=== PATIENT | male | born 1960 | race African-American/Black ===

== ENCOUNTER 2021-02-18 16:23 | Emergency (ER) | payer MEDICAID, OTHER ==
[~2021-02-18] VITALS: Ht 180.3 cm; Wt 79.5 kg
[~2021-02-18 16:23] MED LIST: ALBU0.0912 IH; OXYC1TAB PO; OXYCODONE ACETAMINOPHEN; PROM25TA85 PO; [UNRECOGNIZED DRUG - CODE] PO; [UNRECOGNIZED DRUG - CODE] PO; [UNRECOGNIZED DRUG - OTHER]
[2021-02-18 16:28] VITALS: BP 177/93
[2021-02-18] MEDS ORDERED: PROMETHAZINE 25 MG/ML VIAL IM ONE (17:05)
[2021-02-18] MEDS ORDERED: fentaNYL citrate 0.05 MG/ML VIAL IM ONE (17:05)
[2021-02-18] MEDS ORDERED: PRED20TA5 PO ×2 (17:08→17:37)
[2021-02-18] MEDS ORDERED: CLON-865 PO ×2 (17:08→17:37)
[2021-02-18] MEDS ORDERED: ACET-5636 PO ×2 (17:08→17:37)
[2021-02-18] MEDS ORDERED: LISI40TA12 PO ×2 (17:08→17:37)
[2021-02-18] MEDS ORDERED: ONDA8TAB87 PO ×2 (17:21→17:37)
[2021-02-18 17:51] VITALS: BP 177/93
== END 2021-02-18 18:46 | disposition home or self-care (01) ==
LOC: MED 16:23
DX: K50.90 Crohn's disease, unspecified, without complications (principal); J45.909 Unspecified asthma, uncomplicated; K21.9 Gastro-esophageal reflux disease without esophagitis; F17.210 Nicotine dependence, cigarettes, uncomplicated; Z87.448 Personal history of other diseases of urinary system; Z98.890 Other specified postprocedural states; Z79.899 Other long term (current) drug therapy; Z79.51 Long term (current) use of inhaled steroids; Z88.8 Allergy status to other drugs, medicaments and biological substances; Z88.6 Allergy status to analgesic agent; Z88.2 Allergy status to sulfonamides; Z88.5 Allergy status to narcotic agent
CPT/HCPCS: 96372; 99284; J2550; J3010

== ENCOUNTER 2021-04-13 07:16 | Emergency (ER) | payer OTHER ==
[~2021-04-13] VITALS: Ht 180.3 cm; Wt 79.8 kg
[~2021-04-13 07:16] MED LIST changes: +ACET-5636 PO; +CLON-865 PO; +LISI40TA12 PO; +ONDA8TAB87 PO; +PRED20TA5 PO
[2021-04-13 07:34] VITALS: BP 179/92
[2021-04-13] MEDS ORDERED: fentaNYL citrate 0.05 MG/ML VIAL IM ONE (07:45)
[2021-04-13 09:05] LABS: BASOPHILS % (AUTO) 0.8 % (0.0-2.0); EOSINOPHILS % (AUTO) 0.7 % (0.0-4.0); HEMATOCRIT 41.6 % (36-52); HEMOGLOBIN 13.9 g/dL (12.0-18.0); LYMPHOCYTES # (AUTO) 1.5 K/uL (2.0-11.5); LYMPHOCYTES % (AUTO) 35.9 % (20.5-51.1); MEAN CORPUSCULAR HEMOGLOBIN 31 pg (27-31); MEAN CORPUSCULAR HGB CONC 34 g/dL (33-37); MEAN CORPUSCULAR VOLUME 92.5 fL (80-94); MONOCYTES # (AUTO) 0.5 K/uL (0.8-1.0); MONOCYTES % (AUTO) 10.9 % (1.7-9.3); NEUTROPHILS # (AUTO) 2.2 K/uL (1.8-7.7); NEUTROPHILS % (AUTO) 51.7 % (42.2-75.2); PLATELET COUNT (AUTO) 230 K/uL (140-450); RED CELL DISTRIBUTION WIDTH 14.1 % (11.6-13.7); WHITE BLOOD COUNT (AUTO) 4.3 K/uL (4.8-10.8)
[2021-04-13] MEDS ORDERED: ACET-5629 PO (09:14)
[2021-04-13 09:23] VITALS: BP 179/92
--- NOTE | 2021-04-13 09:23 | NUR ---
Patient discharged with v/s stable. Written and verbal after care instructions given and explained. Patient alert, oriented and verbalized understanding of instructions. Ambulatory with steady gait. All questions addressed prior to discharge. ID band removed. Patient advised to follow up with PMD. Rx of percocet given. Patient educated on indication of medication including possible reaction and side effects. Opportunity to ask questions provided and answered.
[2021-04-13 09:31] LABS: ALBUMIN 3.5 g/dL (3.4-5.0); ANION GAP 13.7 (8-16); CARBON DIOXIDE 25.9 mmol/L (21-32); CREATININE 0.9 mg/dL (0.6-1.3); POTASSIUM 3.6 mmol/L (3.5-5.1); TOTAL BILIRUBIN 0.3 mg/dL (0.0-1.0)
== END 2021-04-13 09:23 | disposition home or self-care (01) ==
LOC: MED 07:16
DX: K50.90 Crohn's disease, unspecified, without complications (principal); G89.29 Other chronic pain; J45.909 Unspecified asthma, uncomplicated; K21.9 Gastro-esophageal reflux disease without esophagitis; F17.200 Nicotine dependence, unspecified, uncomplicated; Z85.72 Personal history of non-Hodgkin lymphomas; Z79.899 Other long term (current) drug therapy; Z88.2 Allergy status to sulfonamides; Z88.6 Allergy status to analgesic agent; Z88.8 Allergy status to other drugs, medicaments and biological substances; Z88.5 Allergy status to narcotic agent
CPT/HCPCS: 36415; 80053; 83690; 85025; 96372; 99283; J3010

== ENCOUNTER 2021-04-23 13:50 | Emergency (ER) | payer OTHER ==
[~2021-04-23] VITALS: Ht 170.2 cm; Wt 84.8 kg
[~2021-04-23 13:50] MED LIST changes: +ACET-5629 PO
[2021-04-23 14:02] VITALS: BP 152/74
[2021-04-23] MEDS ORDERED: fentaNYL citrate 0.05 MG/ML VIAL IM ONE (14:40)
[2021-04-23] MEDS ORDERED: ACET-5636 PO (14:59)
[2021-04-23 15:29] VITALS: BP 142/71
--- NOTE | 2021-04-23 15:29 | NUR ---
Patient discharged with v/s stable. Written and verbal after care instructions given FOR ABD PAIN AND CROHNS DISEASE and explained. Patient alert, oriented and verbalized understanding of instructions. Ambulatory with steady gait. All questions addressed prior to discharge. ID band removed. Patient advised to follow up with PMD. Rx of PERCOCET given. Patient educated on indication of medication including possible reaction and side effects. Opportunity to ask questions provided and answered.
== END 2021-04-23 15:29 | disposition home or self-care (01) ==
LOC: MED 13:50
DX: K50.90 Crohn's disease, unspecified, without complications (principal); J45.909 Unspecified asthma, uncomplicated; K21.9 Gastro-esophageal reflux disease without esophagitis; Z85.72 Personal history of non-Hodgkin lymphomas; Z79.899 Other long term (current) drug therapy; Z88.2 Allergy status to sulfonamides; Z88.5 Allergy status to narcotic agent; Z88.6 Allergy status to analgesic agent; Z88.8 Allergy status to other drugs, medicaments and biological substances
CPT/HCPCS: 96372; 99283; J3010

== ENCOUNTER 2021-05-07 10:27 | Emergency (ER) | payer OTHER ==
[~2021-05-07] VITALS: Ht 175.3 cm; Wt 80.3 kg
[2021-05-07 10:35] VITALS: BP 186/85
--- NOTE | 2021-05-07 11:38 | NUR ---
NO NURSING INTERVENTIONS PROVIDED
[2021-05-07 11:39] VITALS: BP 186/85
--- NOTE | 2021-05-07 11:39 | NUR ---
PT LEFT WITHOUT D/C PAPER WORK
== END 2021-05-07 11:39 | disposition home or self-care (01) ==
LOC: MED 10:27
DX: K50.90 Crohn's disease, unspecified, without complications (principal); G89.29 Other chronic pain; J45.909 Unspecified asthma, uncomplicated; K21.9 Gastro-esophageal reflux disease without esophagitis; F17.200 Nicotine dependence, unspecified, uncomplicated; Z79.899 Other long term (current) drug therapy; Z98.890 Other specified postprocedural states; Z88.5 Allergy status to narcotic agent; Z88.8 Allergy status to other drugs, medicaments and biological substances; Z88.2 Allergy status to sulfonamides; Z88.6 Allergy status to analgesic agent; Z88.1 Allergy status to other antibiotic agents
CPT/HCPCS: 99281

== ENCOUNTER 2021-05-10 19:39 | Emergency (ER) | payer OTHER ==
[~2021-05-10] VITALS: Ht 180.3 cm; Wt 81.6 kg
[2021-05-10 19:51] VITALS: BP 183/55
--- NOTE | 2021-05-10 20:00 | NUR ---
PT TAKEN TO ER BED 05
--- NOTE | 2021-05-10 20:02 | NUR ---
Patient BIB by family from home. C/O abdominal pain x 3 days. Patient reported, had abdominal pain with diarrhea for 3 days , Hx Crohn's disease. A/O,X4, abdominal pain, sharp pain, pain rate 9/10.
--- NOTE | 2021-05-10 20:05 | NUR ---
Dr. Harp at bedside.
[2021-05-10] MEDS ORDERED: fentaNYL citrate 0.05 MG/ML VIAL IM ONE (20:10)
[2021-05-10] MEDS ORDERED: predniSONE 20 MG TAB PO ONE (20:15)
[2021-05-10] MEDS ORDERED: ONDA8TAB87 PO (20:23)
[2021-05-10] MEDS ORDERED: PRED20TA5 PO (20:23)
[2021-05-10 20:40] VITALS: BP 162/69
--- NOTE | 2021-05-10 20:40 | NUR ---
Patient discharged with v/s stable. Written and verbal after care instructions given and explained. Patient alert, oriented and verbalized understanding of instructions. Ambulatory with steady gait. All questions addressed prior to discharge. ID band removed. Patient advised to follow up with PMD. Rx of Zofran and Prednisone given. Patient educated on indication of medication including possible reaction and side effects. Opportunity to ask questions provided and answered.
== END 2021-05-10 20:40 | disposition home or self-care (01) ==
LOC: MED 19:39
DX: K50.90 Crohn's disease, unspecified, without complications (principal); R11.0 Nausea; F17.200 Nicotine dependence, unspecified, uncomplicated; J45.909 Unspecified asthma, uncomplicated; K21.9 Gastro-esophageal reflux disease without esophagitis; Z85.72 Personal history of non-Hodgkin lymphomas; Z79.899 Other long term (current) drug therapy; Z98.890 Other specified postprocedural states; Z88.2 Allergy status to sulfonamides; Z88.5 Allergy status to narcotic agent; Z88.1 Allergy status to other antibiotic agents; Z88.8 Allergy status to other drugs, medicaments and biological substances
CPT/HCPCS: 96372; 99283; J3010; J7512

== ENCOUNTER 2021-05-14 02:17 | Emergency (ER) | payer OTHER ==
[~2021-05-14] VITALS: Ht 180.3 cm; Wt 81.6 kg
[2021-05-14 02:20] VITALS: BP 203/115
--- NOTE | 2021-05-14 02:20 | NUR ---
TO BED AMBULATORY
[2021-05-14] MEDS ORDERED: NACL 0.9% 1,000 ML IV ONE (02:55)
[2021-05-14] MEDS ORDERED: NACL 0.9% 1,000 ML IV SCH (02:55)
[2021-05-14] MEDS ORDERED: ONDANSETRON 4 MG/2 ML VIAL IVP ONE (02:55)
--- NOTE | 2021-05-14 02:56 | NUR ---
Dr. Nicole examining patient.
--- NOTE | 2021-05-14 03:06 | NUR ---
cindy eljesed from facility. Dr. Nicole made aware.
== END 2021-05-14 03:06 | disposition left against medical advice (07) ==
LOC: MED 02:17
DX: K50.90 Crohn's disease, unspecified, without complications (principal); K21.9 Gastro-esophageal reflux disease without esophagitis; J45.909 Unspecified asthma, uncomplicated; Z87.448 Personal history of other diseases of urinary system; Z88.8 Allergy status to other drugs, medicaments and biological substances; Z88.2 Allergy status to sulfonamides; Z88.5 Allergy status to narcotic agent; Z88.6 Allergy status to analgesic agent; Z79.899 Other long term (current) drug therapy
CPT/HCPCS: 99281

== ENCOUNTER 2021-05-25 13:02 | Emergency (ER) | payer OTHER ==
[~2021-05-25] VITALS: Ht 180.3 cm; Wt 81.6 kg
[2021-05-25 13:08] VITALS: BP 241/118
--- NOTE | 2021-05-25 13:29 | NUR ---
Pt ambulated to bed 03 with steady/even gait
--- NOTE | 2021-05-25 13:30 | NUR ---
Dr. Davison is evaluating pt at bedside
--- NOTE | 2021-05-25 13:35 | NUR ---
60/M C/O ABDOMINAL PAIN 10/31. PATIENT STATED THAT THE LYMPH NODES ON HIS CHEST AND LOWER QUADRANTS WERE INFLAMED. NNO MEDS TAKEN pmh: PVD, htn, renal insufficiency, Crohn's disease s/p bowel resection ALLERGIES SEE LIST
--- NOTE | 2021-05-25 13:39 | NUR ---
LAB AT BEDSIDE
== END 2021-05-25 13:41 | disposition left against medical advice (07) ==
LOC: MED 13:02
DX: R10.9 Unspecified abdominal pain (principal); J45.909 Unspecified asthma, uncomplicated; K21.9 Gastro-esophageal reflux disease without esophagitis; Z76.5 Malingerer [conscious simulation]; Z85.72 Personal history of non-Hodgkin lymphomas; Z79.899 Other long term (current) drug therapy; Z88.8 Allergy status to other drugs, medicaments and biological substances; Z88.2 Allergy status to sulfonamides; Z88.5 Allergy status to narcotic agent; Z88.6 Allergy status to analgesic agent
CPT/HCPCS: 99281; 99283

== ENCOUNTER 2021-06-15 20:08 | Emergency (ER) | payer OTHER ==
[~2021-06-15] VITALS: Ht 180.3 cm; Wt 81.6 kg
[2021-06-15 20:27] VITALS: BP 158/90
--- NOTE | 2021-06-15 20:27 | NUR ---
TO BED AMBULATORY
--- NOTE | 2021-06-15 20:41 | NUR ---
RECEIVED IN BED 3 WITH C/O A/P. DENIES N/V/D. HAS BEEN SEEN HERE RECENTLY WITH SIMILAR COMPLAINTS
--- NOTE | 2021-06-15 20:46 | NUR ---
Dr. Nicholas examining patient.
[2021-06-15] MEDS ORDERED: fentaNYL citrate 0.05 MG/ML VIAL IM ONE (20:55)
--- NOTE | 2021-06-15 21:04 | NUR ---
Patient discharged with v/s stable. Written and verbal after care instructions given and explained. Patient verbalized understanding. Ambulatory with steady gait. All questions addressed prior to discharge. Advised to follow up with PMD.
== END 2021-06-15 21:04 | disposition home or self-care (01) ==
LOC: MED 20:08
DX: R10.84 Generalized abdominal pain (principal); G89.29 Other chronic pain; K50.90 Crohn's disease, unspecified, without complications; Z76.5 Malingerer [conscious simulation]; J45.909 Unspecified asthma, uncomplicated; K21.9 Gastro-esophageal reflux disease without esophagitis; Z79.899 Other long term (current) drug therapy; Z85.72 Personal history of non-Hodgkin lymphomas; Z88.1 Allergy status to other antibiotic agents; Z88.2 Allergy status to sulfonamides; Z88.5 Allergy status to narcotic agent; Z88.8 Allergy status to other drugs, medicaments and biological substances; Z88.6 Allergy status to analgesic agent
CPT/HCPCS: 96372; 99283; J3010

== ENCOUNTER 2021-06-20 20:07 | Emergency (ER) | payer OTHER ==
[~2021-06-20] VITALS: Ht 180.3 cm; Wt 81.6 kg
[2021-06-20 20:46] VITALS: BP 148/76
[2021-06-20] MEDS ORDERED: ACET-5636 PO (21:42)
[2021-06-20 21:50] VITALS: BP 148/76
== END 2021-06-20 21:45 | disposition home or self-care (01) ==
LOC: MED 20:07
DX: R10.9 Unspecified abdominal pain (principal); R11.2 Nausea with vomiting, unspecified; R19.7 Diarrhea, unspecified; J45.909 Unspecified asthma, uncomplicated; K21.9 Gastro-esophageal reflux disease without esophagitis; Z85.72 Personal history of non-Hodgkin lymphomas; Z98.890 Other specified postprocedural states; Z79.899 Other long term (current) drug therapy; Z88.5 Allergy status to narcotic agent; Z88.2 Allergy status to sulfonamides; Z88.8 Allergy status to other drugs, medicaments and biological substances; Z88.1 Allergy status to other antibiotic agents
CPT/HCPCS: 99283

== ENCOUNTER 2021-07-04 07:45 | Emergency (ER) | payer OTHER ==
--- NOTE | 2021-07-04 07:59 | NUR ---
PT DOES NOT WANT TO STAY DUE TO HAVING FEMALE PHSYICIAN ON STAFF CURRENTLY. PT LEFT WITHOUT BEING SEEN AT THIS TIME. NO TRIAGE COMPLETED FOR PATIENT
[2021-07-04] MEDS ORDERED: ACET-5629 PO (21:08)
== END 2021-07-04 07:59 | disposition left against medical advice (07) ==
LOC: MED 07:45
DX: Z53.21 Procedure and treatment not carried out due to patient leaving prior to being seen by health care provider (principal)

== ENCOUNTER 2021-07-04 19:59 | Emergency (ER) | payer OTHER ==
[~2021-07-04] VITALS: Ht 180.3 cm; Wt 81.6 kg
[2021-07-04 20:39] VITALS: BP 150/63
--- NOTE | 2021-07-04 21:00 | NUR ---
SEEN AND EXAMINED BY LUCILLE
--- NOTE | 2021-07-04 21:01 | NUR ---
Dr. Garza at triage to exam patient.
[2021-07-04] MEDS ORDERED: fentaNYL citrate 0.05 MG/ML VIAL IM ONE (21:05)
[2021-07-04] MEDS ORDERED: ACET-5629 PO (21:08)
--- NOTE | 2021-07-04 21:20 | NUR ---
MEDICATED PER ERMDS ORDER, TOLERATED WELL.
[2021-07-04 21:50] VITALS: BP 150/63
--- NOTE | 2021-07-04 21:50 | NUR ---
Patient discharged with v/s stable. Written and verbal after care instructions given and explained. Patient alert, oriented and verbalized understanding of instructions. Ambulatory with steady gait. All questions addressed prior to discharge. ID band removed. Patient advised to follow up with PMD. Rx of OXYCODONE HCL/ACETAMINOPHEN given. Patient educated on indication of medication including possible reaction and side effects. Opportunity to ask questions provided and answered.
== END 2021-07-04 21:50 | disposition home or self-care (01) ==
LOC: MED 19:59
DX: K50.90 Crohn's disease, unspecified, without complications (principal); G89.29 Other chronic pain; J45.909 Unspecified asthma, uncomplicated; K21.9 Gastro-esophageal reflux disease without esophagitis; Z88.5 Allergy status to narcotic agent; Z88.2 Allergy status to sulfonamides; Z88.8 Allergy status to other drugs, medicaments and biological substances; Z88.1 Allergy status to other antibiotic agents; Z79.899 Other long term (current) drug therapy
CPT/HCPCS: 96372; 99283; J3010

== ENCOUNTER 2021-07-12 22:41 | Emergency (ER) | payer OTHER ==
[~2021-07-12] VITALS: Ht 180.3 cm; Wt 82.1 kg
[2021-07-12 22:45] VITALS: BP 171/97
--- NOTE | 2021-07-12 22:54 | NUR ---
PT TAKEN TO BED 7
--- NOTE | 2021-07-12 22:55 | NUR ---
PATIENT BIB SELF FOR C/O POSSIBLE ABSCESS AROUND LOWER FRONT TOOTH. PATIENT STATES 8/10 PAIN. SWELLING NOTED ALONG WITH POOR DENTAL HYGEINE. PATIENT NOTED TO BE MISSING SEVERAL TEETH. TOOTH WITH SWELLING ALSO NOTED WITH DECAY AROUND TOP OF TOOTH. NO REDNESS OR DRAINAGE NOTED. ORAL MUCOSA IS PINK AND MOIST. MEDHX: CROHNS, ASTHMA, HTN, "YOU CAN SEE THE REST ON MY STUFF" ALLERGIES: "ITS IN MY CHART."
--- NOTE | 2021-07-12 23:47 | NUR ---
PT LEFT W/O DC PAPERWORK. PT DID NOT WANT MEDICAL HELP OFFERED TO HIM. PT SAID HELL FIND HELP ELSEWHERE
== END 2021-07-12 23:47 | disposition left against medical advice (07) ==
LOC: MED 22:41
DX: K02.9 Dental caries, unspecified (principal); K04.7 Periapical abscess without sinus; J45.909 Unspecified asthma, uncomplicated; I10 Essential (primary) hypertension; K21.9 Gastro-esophageal reflux disease without esophagitis; Z85.72 Personal history of non-Hodgkin lymphomas; Z79.899 Other long term (current) drug therapy; Z79.891 Long term (current) use of opiate analgesic; Z88.8 Allergy status to other drugs, medicaments and biological substances; Z88.6 Allergy status to analgesic agent; Z88.2 Allergy status to sulfonamides; Z88.5 Allergy status to narcotic agent
CPT/HCPCS: 99281

== ENCOUNTER 2021-07-14 19:31 | Emergency (ER) | payer OTHER | END 2021-07-14 19:37 | disposition left against medical advice (07) | LOC: MED 19:31 | DX: R10.9 Unspecified abdominal pain (principal); Z53.21 Procedure and treatment not carried out due to patient leaving prior to being seen by health care provider ==

== ENCOUNTER 2021-07-15 20:07 | Emergency (ER) | payer OTHER ==
[~2021-07-15] VITALS: Ht 180.3 cm; Wt 79.4 kg
== END 2021-07-15 20:52 | disposition left against medical advice (07) ==
LOC: MED 20:07
DX: A69.1 Other Vincent's infections (principal); I10 Essential (primary) hypertension; K50.90 Crohn's disease, unspecified, without complications; Z65.8 Other specified problems related to psychosocial circumstances; Z72.89 Other problems related to lifestyle
CPT/HCPCS: 99281

== ENCOUNTER 2021-07-17 07:52 | Emergency (ER) | payer OTHER ==
[~2021-07-17] VITALS: Ht 180.3 cm; Wt 81.6 kg
[2021-07-17 08:00] VITALS: BP 167/103
--- NOTE | 2021-07-17 08:07 | NUR ---
PT AMBULATED TO ER BED 2 WITH A STEADY GAIT.
[2021-07-17] MEDS ORDERED: oxyCODONE/APAP 5/325 MG 1 TAB TAB PO ONE (08:30)
[2021-07-17] MEDS ORDERED: fentaNYL citrate 0.05 MG/ML VIAL IM ONE (08:30)
[2021-07-17] MEDS ORDERED: PENI500T20 PO (08:32)
--- NOTE | 2021-07-17 09:20 | NUR ---
Patient discharged with v/s stable. Written and verbal after care instructions given and explained. Patient alert, oriented and verbalized understanding of instructions. Ambulatory with steady gait. All questions addressed prior to discharge. ID band removed. Patient advised to follow up with PMD. Rx of PENICILLIN given. Patient educated on indication of medication including possible reaction and side effects. Opportunity to ask questions provided and answered.
[2021-07-17 10:26] VITALS: BP 167/103
== END 2021-07-17 10:26 | disposition home or self-care (01) ==
LOC: MED 07:52
DX: R10.32 Left lower quadrant pain (principal); G89.29 Other chronic pain; K08.89 Other specified disorders of teeth and supporting structures; J45.909 Unspecified asthma, uncomplicated; K21.9 Gastro-esophageal reflux disease without esophagitis; I10 Essential (primary) hypertension; Z98.890 Other specified postprocedural states; Z85.72 Personal history of non-Hodgkin lymphomas; Z79.2 Long term (current) use of antibiotics; Z79.891 Long term (current) use of opiate analgesic; Z79.899 Other long term (current) drug therapy; Z88.8 Allergy status to other drugs, medicaments and biological substances; Z88.6 Allergy status to analgesic agent; Z88.2 Allergy status to sulfonamides; Z88.5 Allergy status to narcotic agent
CPT/HCPCS: 96372; 99283; J3010

== ENCOUNTER 2021-08-09 19:18 | Emergency (ER) | payer OTHER ==
[~2021-08-09 19:18] MED LIST changes: +PENI500T20 PO
--- NOTE | 2021-08-09 20:20 | NUR ---
CALLED TO TRIAGE, NO ANSWER
--- NOTE | 2021-08-09 20:39 | NUR ---
CALLED TO TRIAGE, NO ANSWER
--- NOTE | 2021-08-09 20:47 | NUR ---
CALLED TO TRIAGE, NO ANSWER LWBS
== END 2021-08-09 20:20 | disposition left against medical advice (07) ==
LOC: MED 19:18
DX: R10.9 Unspecified abdominal pain (principal); Z53.21 Procedure and treatment not carried out due to patient leaving prior to being seen by health care provider

== ENCOUNTER 2021-08-26 20:34 | Emergency (ER) | payer OTHER ==
[~2021-08-26] VITALS: Ht 180.3 cm; Wt 81.6 kg
[2021-08-26 20:40] VITALS: BP 130/89
--- NOTE | 2021-08-26 20:40 | NUR ---
TO BED AMBULATORY
--- NOTE | 2021-08-26 20:58 | NUR ---
61 yo/m presents to ED w c/o abdominal pain /10 RLQ/LLQ cramping non-rad, int x 3 day, +n/v/d which pt relates to chrohn's dz. Pt denies any chest pain, sob, blood in emesis or stool. pt laying in bed makenzie dinlowest position w x1 siderail up. breathing even and unlabored. will continue to monitor. pmh: chrohn's disease, htn, bowel ressection x5, renal insufficieny allergies: sulfas, bently, morphine, prednisonde, codeine, aspirin, atram, PPD test
--- NOTE | 2021-08-26 21:10 | NUR ---
ermd at bedside assessing pt
[2021-08-26] MEDS ORDERED: fentaNYL citrate 0.05 MG/ML VIAL IM ONE (21:15)
[2021-08-26] MEDS ORDERED: PRED20TA5 PO (21:33)
[2021-08-26] MEDS ORDERED: ACET-5636 PO (21:33)
[2021-08-26 21:45] VITALS: BP 130/89
--- NOTE | 2021-08-26 21:45 | NUR ---
Patient discharged with v/s stable. Written and verbal after care instructions given and explained. Patient alert, oriented and verbalized understanding of instructions. Ambulatory with steady gait. All questions addressed prior to discharge. ID band removed. Patient advised to follow up with PMD. Rx of percocet, prednisone given. Patient educated on indication of medication including possible reaction and side effects. Opportunity to ask questions provided and answered.
== END 2021-08-26 21:45 | disposition home or self-care (01) ==
LOC: MED 20:34
DX: K50.90 Crohn's disease, unspecified, without complications (principal); J45.909 Unspecified asthma, uncomplicated; K21.9 Gastro-esophageal reflux disease without esophagitis; I10 Essential (primary) hypertension; F17.200 Nicotine dependence, unspecified, uncomplicated; Z85.79 Personal history of other malignant neoplasms of lymphoid, hematopoietic and related tissues; Z98.890 Other specified postprocedural states; Z79.2 Long term (current) use of antibiotics; Z79.891 Long term (current) use of opiate analgesic; Z79.899 Other long term (current) drug therapy; Z88.8 Allergy status to other drugs, medicaments and biological substances; Z88.6 Allergy status to analgesic agent; Z88.2 Allergy status to sulfonamides; Z88.5 Allergy status to narcotic agent
CPT/HCPCS: 96372; 99283; J3010

== ENCOUNTER 2021-09-05 19:22 | Emergency (ER) | payer OTHER ==
[~2021-09-05] VITALS: Ht 180.3 cm; Wt 78.2 kg
[2021-09-05 19:30] VITALS: BP 179/66
--- NOTE | 2021-09-05 20:28 | NUR ---
PT TAKEN TO BED 2
--- NOTE | 2021-09-05 20:53 | NUR ---
61 Y/O MALE BIB SELF FOR C/O ABDOMINAL PAIN 9/10 PAIN. PATIENT STATES PAIN HAS BEEN PRESENT X 2 DAYS. PATIENT ATMIDS TO N/V/D X 2 DAYS. DENIES COUGH, FEVER, SOB, OR CP. DENIES BLOOD IN VOMIT OR STOOL. A/OX4, GCS-15; AMBULATORY; UNLABORED BREATHING. PT SEATED IN BED WITH HOB RAISED, BED IN LOWEST POSITION, AND RAIL UP X1. MEDHX: CROHNS, RENAL DISEASE, HODGKINS LYMPHOMA, HTN
[2021-09-05] MEDS ORDERED: fentaNYL citrate 0.05 MG/ML VIAL IM ONE (21:30)
[2021-09-05] MEDS ORDERED: ONDA8TAB87 PO (22:15)
[2021-09-05] MEDS ORDERED: ACET-5629 PO (22:15)
[2021-09-05] MEDS ORDERED: PRED20TA5 PO (22:15)
[2021-09-05 22:18] VITALS: BP 165/68
--- NOTE | 2021-09-05 22:26 | NUR ---
Patient discharged with v/s stable. Written and verbal after care instructions given and explained. Patient alert, oriented and verbalized understanding of instructions. Ambulatory with steady gait. All questions addressed prior to discharge. ID band removed. Patient advised to follow up with PMD. Rx of PERCOCET 5-325, DELTASONE, AND ZOFRAN given. Patient educated on indication of medication including possible reaction and side effects. Opportunity to ask questions provided and answered. A/OX4, VSS, AMBULATORY, UNLABORED BREATHING.
== END 2021-09-05 22:26 | disposition home or self-care (01) ==
LOC: MED 19:22
DX: K50.00 Crohn's disease of small intestine without complications (principal); R10.32 Left lower quadrant pain; R10.31 Right lower quadrant pain; R11.2 Nausea with vomiting, unspecified; R19.7 Diarrhea, unspecified; J45.909 Unspecified asthma, uncomplicated; I10 Essential (primary) hypertension; K21.9 Gastro-esophageal reflux disease without esophagitis; N18.9 Chronic kidney disease, unspecified; Z85.72 Personal history of non-Hodgkin lymphomas; Z98.890 Other specified postprocedural states; Z88.2 Allergy status to sulfonamides; Z88.6 Allergy status to analgesic agent; Z88.5 Allergy status to narcotic agent; Z79.891 Long term (current) use of opiate analgesic; Z88.8 Allergy status to other drugs, medicaments and biological substances
CPT/HCPCS: 96372; 99283; J3010

== ENCOUNTER 2021-09-16 18:21 | Emergency (ER) | payer OTHER ==
[~2021-09-16] VITALS: Ht 180.3 cm; Wt 78.0 kg
[2021-09-16 19:18] VITALS: BP 158/78
--- NOTE | 2021-09-16 21:08 | NUR ---
Dr. Harp examining patient.
--- NOTE | 2021-09-16 21:11 | NUR ---
Patient walked out ER.
--- NOTE | 2021-09-16 21:14 | NUR ---
PATIENT ELOPED FROM FACILITY. DISCHARGE INSTRUCTIONS NOT GIVEN TO PATIENT. DR. URIBE NOTIFIED. Addendum: 09/16/21 at 2117 by CANDICE Patient left without D/C papers.
== END 2021-09-16 21:17 | disposition home or self-care (01) ==
LOC: MED 18:21
DX: R10.32 Left lower quadrant pain (principal); J45.909 Unspecified asthma, uncomplicated; K21.9 Gastro-esophageal reflux disease without esophagitis; Z79.899 Other long term (current) drug therapy; Z88.1 Allergy status to other antibiotic agents; Z88.2 Allergy status to sulfonamides; Z88.5 Allergy status to narcotic agent; Z88.8 Allergy status to other drugs, medicaments and biological substances; Z85.72 Personal history of non-Hodgkin lymphomas; Z98.890 Other specified postprocedural states
CPT/HCPCS: 99281

== ENCOUNTER 2021-10-31 10:42 | Emergency (ER) | payer OTHER ==
[~2021-10-31] VITALS: Ht 180.3 cm; Wt 77.1 kg
[2021-10-31 10:52] VITALS: BP 161/76
--- NOTE | 2021-10-31 10:58 | NUR ---
JEFF. HANDED ON URINE CUP.
--- NOTE | 2021-10-31 13:07 | NUR ---
PATIENT LEFT WITHOUT BEING SEEN BY TYLER REDDY. NO FURTHER CARE PROVIDED FOR PATIENT.
== END 2021-10-31 13:07 | disposition left against medical advice (07) ==
LOC: MED 10:42
DX: R10.9 Unspecified abdominal pain (principal); Z53.21 Procedure and treatment not carried out due to patient leaving prior to being seen by health care provider

== ENCOUNTER 2021-11-07 11:38 | Emergency (ER) | payer OTHER ==
[~2021-11-07] VITALS: Ht 180.3 cm; Wt 78.2 kg
[2021-11-07 11:55] VITALS: BP 180/90
--- NOTE | 2021-11-07 12:08 | NUR ---
Lab at bedside, pt refused blood work. MD lama
--- NOTE | 2021-11-07 12:08 | NUR ---
61 y/o male c/o of bilateral LQ pain x 4 days + diarrhea. States 8/10 non-radiating cramping pain. Has hx of Chrons disease x 42 years per pt. Denies fever or chills, denies blood in stool, fatigue, or cough. Pt states he would like symptoms managed only. Refusing all labs at this time. Pt A/O x4, ambulatory.
--- NOTE | 2021-11-07 12:10 | NUR ---
Dr Schaefer at bedside for evaluation
[2021-11-07] MEDS ORDERED: fentaNYL citrate 0.05 MG/ML VIAL IM ONE (12:15)
[2021-11-07] MEDS ORDERED: ACET-10509 PO (12:18)
[2021-11-07] MEDS ORDERED: ONDA-188 PO (12:18)
[2021-11-07 12:35] VITALS: BP 180/90
--- NOTE | 2021-11-07 12:35 | NUR ---
Patient discharged with v/s stable. Written and verbal after care instruction about abdominal pain given and explained. Patient alert, oriented and verbalized understanding of instructions. Ambulatory with steady gait. All questions addressed prior to discharge. ID band removed. Patient advised to follow up with PMD. Rx of Tylenol, Zofran given. Patient educated on indication of medication including possible reaction and side effects. Opportunity to ask questions provided and answered.
== END 2021-11-07 12:35 | disposition home or self-care (01) ==
LOC: MED 11:38
DX: K50.90 Crohn's disease, unspecified, without complications (principal); J45.909 Unspecified asthma, uncomplicated; I10 Essential (primary) hypertension; K21.9 Gastro-esophageal reflux disease without esophagitis; Z79.899 Other long term (current) drug therapy; Z88.2 Allergy status to sulfonamides; Z88.8 Allergy status to other drugs, medicaments and biological substances; Z88.6 Allergy status to analgesic agent; Z85.72 Personal history of non-Hodgkin lymphomas; Z98.890 Other specified postprocedural states
CPT/HCPCS: 96372; 99283; J3010

== ENCOUNTER 2021-11-10 19:54 | Emergency (ER) | payer OTHER ==
[~2021-11-10] VITALS: Ht 180.3 cm; Wt 78.0 kg
[~2021-11-10 19:54] MED LIST changes: +ACET-10509 PO; +ONDA-188 PO
[2021-11-10 19:58] VITALS: BP 167/89
--- NOTE | 2021-11-10 22:15 | NUR ---
Called first time- no show in lobby or outside.
--- NOTE | 2021-11-10 22:45 | NUR ---
Called - no show in lobby or outside.
--- NOTE | 2021-11-10 23:00 | NUR ---
PATIENT LEFT WITHOUT BEING SEEN BY DR. Harp. NO FURTHER CARE PROVIDED FOR PATIENT.
== END 2021-11-10 22:15 | disposition left against medical advice (07) ==
LOC: MED 19:54
DX: R10.9 Unspecified abdominal pain (principal); Z53.21 Procedure and treatment not carried out due to patient leaving prior to being seen by health care provider

== ENCOUNTER 2021-11-13 19:17 | Emergency (ER) | payer OTHER ==
[~2021-11-13] VITALS: Ht 180.3 cm; Wt 78.0 kg
[2021-11-13 19:23] VITALS: BP 152/77
[2021-11-13 20:07] VITALS: BP 152/77
--- NOTE | 2021-11-13 20:16 | NUR ---
Dr. Harp examining patient.
--- NOTE | 2021-11-13 20:22 | NUR ---
Patient left without D/C papers.
== END 2021-11-13 20:22 | disposition home or self-care (01) ==
LOC: MED 19:17
DX: G89.29 Other chronic pain (principal); R10.9 Unspecified abdominal pain; R19.7 Diarrhea, unspecified; F17.200 Nicotine dependence, unspecified, uncomplicated; J45.909 Unspecified asthma, uncomplicated; K21.9 Gastro-esophageal reflux disease without esophagitis; I10 Essential (primary) hypertension; Z98.890 Other specified postprocedural states; Z79.899 Other long term (current) drug therapy; Z85.72 Personal history of non-Hodgkin lymphomas; Z88.1 Allergy status to other antibiotic agents; Z88.2 Allergy status to sulfonamides; Z88.5 Allergy status to narcotic agent; Z88.6 Allergy status to analgesic agent; Z88.8 Allergy status to other drugs, medicaments and biological substances
CPT/HCPCS: 99281